=== PATIENT | female | born 1970 ===

== ENCOUNTER 2018-03-21 17:33 | Emergency (ER) | payer BC ==
[2018-03-21 17:46] VITALS: BP 110/68
--- NOTE | 2018-03-21 17:58 | ED ---
Lower Extremity - HPI Summary HPI Summary: 47-year-old female presents with left foot pain today. States that she slipped backwards off a ladder. She states she fell 5 feet. States she landed on her feet. She denies any pain at the incident. States that gradual increase of pain in left foot. Pain is greatest in left fifth metacarpal. No previous fracture to the area. She denies any back pain. She denies any head injury or loss conscious. She hasn't taking anything for pain. She attempted to run and was unable to do so. States pain is worse when tries ambulate. - History of Current Complaint Chief Complaint: UCLowerExtremity Stated Complaint: FOOT INJURY Time Seen by Provider: 03/21/18 17:49 Pain Intensity: 5 - Allergies/Home Medications Allergies/Adverse Reactions: Allergies Allergy/AdvReac Type Severity Reaction Status Date / Time No Known Allergies Allergy Verified 03/21/18 17:46 Home Medications: Home Medications Cholecalciferol (Vitamin D3) [Vitamin D3] 1,000 unit PO 03/21/18 [History] Glucosam/Chond/Collagen/Hyalur [Glucosamine Chondroitin Cap] 03/21/18 [History] Multivitamin [Multivitamins] 1 cap PO 03/21/18 [History] Sertraline HCl [Zoloft] 100 mg PO 03/21/18 [History] PMH/Surg Hx/FS Hx/Imm Hx Endocrine/Hematology History: Denies: Hx Anticoagulant Therapy Cardiovascular History: Denies: Hx Myocardial Infarction - Surgical History Surgery Procedure, Year, and Place: wisdom teeth extraction Infectious Disease History: No Infectious Disease History: Denies: Traveled Outside the [place] in Last 30 Days - Family History Known Family History: Positive: Hypertension - Social History Alcohol Use: Occasionally Substance Use Type: Reports: None Smoking Status (MU): Never Smoked Tobacco Review of Systems Negative: Fever Negative: Chest Pain Negative: Shortness Of Breath Positive: Myalgia - left foot All Other Systems Reviewed And Are Negative: Yes Physical Exam Triage Information Reviewed: Yes Vital Signs On Initial Exam: Initial Vitals Temp Pulse Resp BP Pulse Ox 98.9 F 56 18 110/68 99 03/21/18 17:42 03/21/18 17:42 03/21/18 17:42 03/21/18 17:42 03/21/18 17:42 Vital Signs Reviewed: Yes Appearance: Positive: Well-Appearing Skin: Positive: Warm, Dry Head/Face: Positive: Normal Head/Face Inspection Eyes: Positive: Normal, Conjunctiva Clear ENT: Positive: Pharynx normal Respiratory/Lung Sounds: Positive: Clear to Auscultation, Breath Sounds Present Cardiovascular: Positive: Normal, RRR Musculoskeletal: Positive: Strength/ROM Intact - left foot, Other - tenderness over lateral aspect of left foot, good pulses, capillary refill <2 secs, Neurological: Positive: Normal Psychiatric: Positive: Normal Diagnostics - Vital Signs Vital Signs Temp Pulse Resp BP Pulse Ox 03/21/18 17:42 98.9 F 56 18 110/68 99 - Laboratory Lab Statement: Any lab studies that have been ordered have been reviewed, and results considered in the medical decision making process. - Radiology foot Xray Interpretation: No Acute Changes Radiology Interpretation Completed By: Radiologist Lower Extremity Course/Dx - Course Course Of Treatment: 47-year-old female presents with left foot pain today. States that she slipped backwards off a ladder. She states she fell 5 feet. States she landed on her feet. She denies any pain at the incident. States that gradual increase of pain in left foot. Pain is greatest in left fifth metacarpal. No previous fracture to the area. She denies any back pain. She denies any head injury or loss conscious. She hasn't taking anything for pain. She attempted to run and was unable to do so. States pain is worse when tries ambulate. On exam has tenderness over left metacarpal. Neurovascularly intact. X-ray foot normal. will treat with rice. patient understand and agrees with plan. - Diagnoses Differential Diagnosis/HQI/PQRI: Positive: Fracture (Closed), Sprain, Strain Provider Diagnoses: Injury of left foot Discharge - Sign-Out/Discharge Documenting (check all that apply): Discharge/Admit/Transfer - Discharge Plan Condition: Good Disposition: HOME Patient Education Materials: Foot Contusion (ED) Referrals: [facility] [place] [facility] REFERRAL [Outside] Additional Instructions: Take Tylenol or ibuprofen every 6 hours as needed for pain Apply ice, rest, elevate Establish care with primary to follow up Return to ED if develop any new or worsening symptoms - Billing Disposition and Condition Condition: GOOD Disposition: Home
--- NOTE | 2018-03-21 18:17 | RAD ---
INDICATION: Left foot pain overlying the fifth metatarsal after a fall COMPARISON: None. TECHNIQUE: 4 views of the left foot were obtained. FINDINGS: The adequately corticated bones are properly aligned. Joint spaces appear maintained. No fracture, dislocation or focal bony abnormality is seen. IMPRESSION: Normal radiograph of the left foot. If the patient's symptoms persist, follow-up imaging is recommended.
== END 2018-03-21 18:40 | disposition home or self-care (01) ==
LOC: UCEAST 17:33
DX: S99.922A Unspecified injury of left foot, initial encounter (principal); W11.XXXA Fall on and from ladder, initial encounter; Y93.9 Activity, unspecified; Y92.9 Unspecified place or not applicable
CPT/HCPCS: 99203; G0463